=== PATIENT | female | born 1975 ===

== ENCOUNTER 2022-05-12 06:13 | Day surgery (SDC) | payer OTHER | END 2022-05-12 11:15 | disposition home or self-care (01) | LOC: AMB-ENDOS 06:13 | PROVIDERS: ATTEND Colon & Rectal Surgery | DX: K64.4 Residual hemorrhoidal skin tags (principal); I10 Essential (primary) hypertension; E11.9 Type 2 diabetes mellitus without complications; Z85.42 Personal history of malignant neoplasm of other parts of uterus ==